=== PATIENT | female | born 1985 | race Caucasian/White ===

== ENCOUNTER 2019-01-11 12:13 | Day surgery (SDC) | payer OTHER ==
[~2019-01-11] VITALS: Ht 170.2 cm; Wt 58.4 kg
[2019-01-11 13:09] VITALS: Ht 170.2 cm; Wt 58.4 kg
[2019-01-11 13:45] VITALS: BP 139/81; PULSE 94; RESP 20
[2019-01-11] MEDS ORDERED: BIRTH CONTROL PO (13:45)
[2019-01-11] MEDS ORDERED: FISH OIL PO (13:45)
[2019-01-11] MEDS ORDERED: PROTONIX PO (13:45)
[2019-01-11] MEDS ORDERED: MOTRIN PO (13:45)
[2019-01-11] MEDS ORDERED: VITAMIN D PO (13:45)
--- NOTE | 2019-01-11 14:44 | PREAC ---
Date/Time of Note Date/Time of Note DATE: 01/11/19 TIME: 14:43 Anesthesia Eval and Record Evaluation Time Pre-Procedure Interview DATE: 01/11/19 TIME: 14:43 Age 33 Sex female NPO: 8 hrs (LOWER BLEEDING) Preoperative diagnosis GI BLEEDING ABD PAIN Planned procedure EGD COLONOSCOPY Past Medical History Past Medical History: None Surgery & Anesthesia Issues No known issue Meds Anticoagulation: No Beta Eric within 24 hr: No Reason Beta Eric not given: Pt. not on B-Eric Reported Medications [Motrin] No Conflict Check, PO 01/11/19 [Vitamin D] No Conflict Check, PO 01/11/19 [Fish Oil] No Conflict Check, PO 01/11/19 [ Control] No Conflict Check, PO 01/11/19 [Protonix] No Conflict Check, PO 01/11/19 Meds reviewed: Yes Allergies Uncoded Allergies: ANTIBIOTIC UNKNOWN (Allergy, Unknown, 01/11/19) Allergies Reviewed: Yes Labs/Studies Labs Reviewed: Reviewed by anesthesiologist test: Negative Studies: ECG (N/A), CXR (N/A) Pre-procedure Exam Last vitals Vital Signs Date Temp Pulse Resp B/P (MAP) Pulse Ox O2 O2 Flow FiO2 Time Delivery Rate 01/11/19 99.1 94 20 139/81 100 Room Air 13:45 (100) Airway: Adequate mouth opening Mallampati: Mallampati I Teeth: Normal Lung: Normal Heart: Normal ASA Physical Status ASA physical status: 1 Emergency: None Planned Anesthetic General/MAC: MAC Planned Pain Management Parenteral pain med Pre-operative Attestations Prior to commencing anesthesia and surgery, the patient was re-evaluated, there was verification of: *The patient's identity *The results of appropriate recent lab work and preoperative vital signs *The above evaluation not changing prior to induction *Anesthetic plan, risk benefits, alternative and complications discussed with patient/family; questions answered; patient/family understands, accepts and wishes to proceed. FRANCIE RAMÍREZ MD Jan 11, 2019 14:44
[2019-01-11] MEDS ORDERED: PROPOFOL 20 ML ONE ×2 (14:51→15:12)
--- NOTE | 2019-01-11 15:15 | HPN ---
Date/Time of Note Date/Time of Note DATE: 01/11/19 TIME: 15:15 Interval H&P Admission Note Pt. seen H&P reviewed: No system changes GERSON CHANDLER Jan 11, 2019 15:15
[2019-01-11 15:32] VITALS: BP 109/67; PULSE 62; RESP 20
--- NOTE | 2019-01-12 09:13 | PAC ---
Date/Time of Note Date/Time of Note DATE: 01/12/19 TIME: 09:12 Post-Anesthesia Notes Post-Anesthesia Note Last documented vital signs Vital Signs Date Temp Pulse Resp B/P (MAP) Pulse Ox O2 O2 Flow FiO2 Time Delivery Rate 01/11/19 99.0 62 20 109/67 100 Room Air 15:32 (81) 01/11/19 99.1 13:45 Activity: WNL Respiratory function: WNL Cardiovascular function: WNL Mental status: Baseline Pain reasonably controlled: Yes Hydration appropriate: Yes Nausea/Vomiting absent: No FRANCIE RAMÍREZ MD Jan 12, 2019 09:13
== END 2019-01-11 16:43 | disposition home or self-care (01) ==
LOC: GIL 12:13
PROVIDERS: ATTEND Internal Medicine Gastroenterology
DX: K29.30 Chronic superficial gastritis without bleeding (principal); K21.0 Gastro-esophageal reflux disease with esophagitis; K64.8 Other hemorrhoids
CPT/HCPCS: 43239; 45380; 84703; Z7610; 88305; 88312; 88313